=== PATIENT | male | born 1990 | race Caucasian/White ===

== ENCOUNTER 2024-01-20 13:47 | Emergency (ER) | payer BC, SELFPAY ==
[2024-01-20 13:53] VITALS: BP 119/64; PULSE 64; RESP 20; TEMP 36.8; O2SAT 100
[2024-01-20 14:03] VITALS: BP 119/64; PULSE 64; RESP 20; TEMP 36.8; O2SAT 100
--- NOTE | 2024-01-20 14:04 | ED.SKABFB ---
HPI - Skin/Abscess/Foreign Bdy General Chief complaint: Skin/Abscess/Foreign Body Stated complaint: Insect Bite Time Seen by Provider: 01/20/24 14:05 Source: patient Mode of arrival: ambulatory Limitations: no limitations History of Present Illness HPI narrative: 33 y/o male presents with complaints of an insect bite 3-4 days ago. He was painting outside, wearing pants, when something bit the leg, but he did not see the insect. He states after showering, a yellow/purple ring appears around the site. No ring is present on arrival. He states the area is more sensitive but is not painful or itchy. He denies any fevers, chills, body aches, nausea, vomiting, or joint pain. Related Data Allergies Allergy/AdvReac Type Severity Reaction Status Date / Time tramadol AdvReac Intermediate Headache Verified 01/20/24 14:03 Review of Systems Review of Systems: CONSTITUTIONAL: Denies body aches, fever, chills, or sweats. EYES: Denies visual changes, redness, or discharge. ENT: Denies rhinorrhea, congestion CARDIOVASCULAR: Denies chest pain, palpitations, or edema. RESPIRATORY: Denies cough or dyspnea. GASTROINTESTINAL: Denies abdominal pain, nausea, vomiting, or diarrhea. SKIN: Reports an insect bite to the right upper thigh. MUSCULOSKELETAL: Denies back pain, joint pain, or myalgia. NEUROLOGIC: Denies headache, numbness, tingling, or weakness. PMFSH Comments At time of signature, I have reviewed and agree with nursing past medical, surgical, social and family history unless otherwise noted. Please see nursing chart for further information. There is no relevant family history pertinent to the presenting complaint Exam Narrative: GENERAL: Well-appearing, no apparent distress. HEAD: Normocephalic, atraumatic. EYES: Conjunctivae clear. EOMI. NECK: Supple. No lymphadenopathy CHEST: Clear to auscultation. HEART: Regular rate and rhythm. SKIN: Warm and dry. Approx 1cm diameter erythematous nodule to the right anterior proximal thigh. Nontender. No fluctuance, drainage, discoloration, ulceration, or necrosis. NEURO: Alert and oriented x3. Course Course Emergency Course: Patient is aware of diagnosis, understands and agrees to treatment plan. Anticipatory guidance given. Patient agrees to follow-up as directed and is aware of reasons to seek care at the emergency department. Portions of this record may have been created with voice recognition software Level of Care: Express Care Visit Vital Signs Vital signs: Vital Signs Temperature 98.3 F 01/20/24 13:53 Pulse Rate 64 01/20/24 13:53 Respiratory Rate 20 01/20/24 13:53 Blood Pressure 119/64 01/20/24 13:53 Pulse Oximetry 100 01/20/24 13:53 Oxygen Delivery Room Air 01/20/24 13:53 Temperature 98.3 F 01/20/24 14:03 Pulse Rate 64 01/20/24 14:03 Respiratory Rate 20 01/20/24 14:03 Blood Pressure 119/64 01/20/24 14:03 Pulse Oximetry 100 01/20/24 14:03 Oxygen Delivery Room Air 01/20/24 14:03 Reviewed MDM - Skin/Abscess/Foreign Bdy MDM Narrative Medical decision making narrative: Discussed physical exam findings. Reviewed antibiotic prescription with the patient. Advised supportive measures and signs/symptoms to go to the ER. Pt is appropriate for outpt treatment and f/u. Instructed patient to go to nearest ER immediately for any worsening symptoms including but not limited to: fever, spreading rash, pain, sore throat, headache, dizziness, chest pain, trouble breathing, or any symptoms concerning to the patient. Differential Diagnosis Differential diagnosis: Likely abscess of skin or subcutaneous tissue, urticaria, herpes zoster, cellulitis, insect bites and contact dermatitis Discharge Plan Discharge Clinical Impression: Insect bites Patient Disposition: Home, Self-Care Condition: Stable Instructions: Antibiotic Form, Insect Bite or Sting (ED) Additional Instructions: Keep the area clean and dry - cleanse
== END 2024-01-20 14:15 | disposition home or self-care (01) ==
PROVIDERS: Emergency Provider Nurse Practitioner Family
DX: S70.361A Insect bite (nonvenomous), right thigh, initial encounter (principal); W57.XXXA Bitten or stung by nonvenomous insect and other nonvenomous arthropods, initial encounter; Z86.61 Personal history of infections of the central nervous system
CPT/HCPCS: 99213; G0463